=== PATIENT | male | born 1960 | race African-American/Black ===

== ENCOUNTER 2021-07-17 00:21 | Inpatient (IN) | payer MEDICARE, MEDICAID ==
[~2021-07-17] VITALS: Ht 188 cm; Wt 97.5 kg
[2021-07-17] VITALS (50 sets, daily range): BP systolic 94–121; BP diastolic 57–82
[2021-07-17] MEDS ORDERED: VANCOMYCIN 1GM/250ML 250 ML IV ONE (01:45)
[2021-07-17] MEDS ORDERED: SODIUM CHLORIDE 0.9% 3,000 ML IV ONE (01:45)
[2021-07-17] MEDS ORDERED: PIPERACILLIN-TAZOB 3.375GM 100 ML IV ONE (01:45)
[2021-07-17] MEDS ORDERED: METOPROLOL TARTRATE 1MG/1ML-5ML VIAL IV ONE (01:45)
[2021-07-17 02:08] LABS: Basophils # (auto) 0 10 ^3/uL (0-0.2); Basophils % (auto) 0.4 % (0.0-2.0); Eosinophils # (auto) 0 10 ^3/uL (0-0.8); Eosinophils % (auto) 0.3 % (0.0-7.0); Hematocrit 39.2 % (41.0-53.0); Hemoglobin 12.7 g/dL (13.5-17.5); Lymphocytes # (auto) 0.7 10 ^3/uL (0.4-5.4); Lymphocytes % (auto) 11.3 % (10.0-50.0); Mean Corpuscular Hemoglobin 29.6 pg (28.0-32.0); Mean Corpuscular Hgb Conc. 32.5 g/dL (32.0-36.0); Monocytes # (auto) 0.6 10 ^3/uL (0-1.3); Monocytes % (auto) 9.6 % (0.0-12.0); Neutrophils # (auto) 5.2 10 ^3/uL (1.6-8.6); Neutrophils % (auto) 78.4 % (37.0-80.0); Nucleated Red Blood Cells % 0.1 %; Red Blood Cells 4.31 10^6/uL (4.5-5.90); Red Cell Distribution Width 17.5 % (11.8-14.3); White Blood Cell 6.6 10^3/uL (4.4-10.8)
[2021-07-17 02:17] LABS: INR 1.37 (0.9-1.15); Partial Thromboplastin Time 32.7 sec (23.6-33.0)
[2021-07-17 02:18] LABS: Albumin 1.3 g/dL (3.4-5.0); BUN/Creatinine Ratio 18.3; Calcium 7.5 mg/dL (8.5-10.1); Potassium 4.6 mmol/L (3.5-5.1)
[2021-07-17 02:21] LABS: Bilirubin, Total 0.8 mg/dL (0.2-1.0); Total Protein 5.3 g/dL (6.4-8.2)
[2021-07-17 02:22] LABS: Lactic Acid w/Reflex 2.4 mmol/L (0.4-2.0)
[2021-07-17] MEDS: METOPROLOL TARTRATE 1MG/1ML-5ML VIAL IV SCH ×4 (02:30→04:42)
[2021-07-17] MEDS ORDERED: NOREPINEPHRINE 8 MG/250ML KIT 250 ML IV ONE (03:17)
[2021-07-17] MEDS: NOREPINEPHRINE 8 MG/250ML KIT 250 ML IV SCH (03:32)
[2021-07-17] MEDS ORDERED: MORPHINE SULFATE INJ 2 MG/ml SYRG IV PRN ×3 (09:30→11:15)
[2021-07-17] MEDS ORDERED: DEXTROSE (50%) 50ML SYRG IV ONE (09:30)
[2021-07-17] MEDS ORDERED: NITROGLYCERIN 0.4 MG SL TAB SL PRN ×2 (09:30→11:15)
[2021-07-17] MEDS: D5W/SOD CHLO 0.9% 1,000 ML IV SCH (09:42)
[2021-07-17] MEDS ORDERED: LIDOCAINE 2% JELLY 11ml (GLYDO) ONE (10:42)
[2021-07-17] MEDS ORDERED: DOCUSATE SOD 100 MG CAP PO PRN (11:15)
[2021-07-17] MEDS ORDERED: HYDROcodone-ACET 5/325MG TAB PO PRN (11:15)
[2021-07-17] MEDS ORDERED: hydrALAZINE HCL 20 MG/ML VL IV PRN (11:15)
[2021-07-17] MEDS ORDERED: LORazepam 0.5 MG TAB PO PRN (11:15)
[2021-07-17] MEDS ORDERED: ONDANSETRON HCL 4 MG/2 ML VIAL IV PRN (11:15)
[2021-07-17] MEDS ORDERED: VANCOMYCIN PER PHARMACY 0 MG IV SCH (11:15)
[2021-07-17 11:58] LABS: Magnesium 1.5 mg/dL (1.6-2.6); Phosphorus 2.7 mg/dL (2.5-4.90)
[2021-07-17] MEDS ORDERED: PIPERACILLIN-TAZOB 3.375GM 100 ML IV SCH (12:00)
[2021-07-17] MEDS ORDERED: LIDOCAINE 1% (LOCAL ANESTH.) PF 5ml SDV ID ONE (17:15)
[2021-07-17] MEDS: FUROSEMIDE 20 MG/2 ML VIAL IV SCH (18:25)
[2021-07-17 18:57] LABS: INR 1.38 (0.9-1.15); Partial Thromboplastin Time 36.2 sec (23.6-33.0)
[2021-07-17 22:16] LABS: Urine Bacteria FEW /hpf (None Seen); Urine Blood 2+ /uL (Negative); Urine Hyaline Cast FEW /lpf (0 - 2); Urine Specific Gravity 1.005 (1.001-1.035); Urine WBC 7 /hpf (0 - 3)
[2021-07-17] MEDS: CEFEPIME 2 GM in SODIUM CHL 0.9% 50 ML IV SCH (22:16)
[2021-07-17] MEDS: SODIUM CHLOR 0.9% PF (SALINE LOCK) 10ML VIAL/SYR IV SCH (22:17)
[2021-07-18] VITALS (92 sets, daily range): BP systolic 61–167; BP diastolic 37–127
[2021-07-18] MEDS: NOREPINEPHRINE 8 MG/250ML KIT 250 ML IV SCH ×3 (00:29→19:45)
[2021-07-18] MEDS ORDERED: VANCOMYCIN PER PHARMACY 0 MG IV SCH (00:45)
[2021-07-18] MEDS: FUROSEMIDE 20 MG/2 ML VIAL IV SCH ×2 (06:13→18:51)
[2021-07-18 07:55] LABS: Basophils # (auto) 0 10 ^3/uL (0-0.2); Eosinophils # (auto) 0 10 ^3/uL (0-0.8); Eosinophils % (auto) 0.5 % (0.0-7.0); Lymphocytes # (auto) 0.8 10 ^3/uL (0.4-5.4); Mean Corpuscular Volume 96.2 fL (80.0-100.0); Neutrophils % (auto) 79.6 % (37.0-80.0)
[2021-07-18 07:57] LABS: Basophils % (auto) 0.2 % (0.0-2.0); Hematocrit 37.2 % (41.0-53.0); Hemoglobin 11.8 g/dL (13.5-17.5); Lymphocytes % (auto) 10.1 % (10.0-50.0); Mean Corpuscular Hemoglobin 30.6 pg (28.0-32.0); Mean Corpuscular Hgb Conc. 31.8 g/dL (32.0-36.0); Monocytes # (auto) 0.8 10 ^3/uL (0-1.3); Monocytes % (auto) 9.6 % (0.0-12.0); Neutrophils # (auto) 6.3 10 ^3/uL (1.6-8.6); Nucleated Red Blood Cells % 0.1 %; Red Blood Cells 3.87 10^6/uL (4.5-5.90); Red Cell Distribution Width 17.9 % (11.8-14.3); White Blood Cell 7.9 10^3/uL (4.4-10.8)
[2021-07-18 08:10] LABS: INR 1.49 (0.9-1.15); Partial Thromboplastin Time 40.1 sec (23.6-33.0)
[2021-07-18 08:28] LABS: Potassium 3.4 mmol/L (3.5-5.1)
[2021-07-18 08:41] LABS: BUN/Creatinine Ratio 17.5; Bilirubin, Total 0.6 mg/dL (0.2-1.0); CRP High Sensitivity 14.5 mg/dL (< 0.3); Calcium 6.3 mg/dL (8.5-10.1); Magnesium 1.6 mg/dL (1.6-2.6); Phosphorus 3.2 mg/dL (2.5-4.90); Total Protein 4.7 g/dL (6.4-8.2); Uric Acid 6.4 mg/dL (3.5-7.2)
[2021-07-18] MEDS: D5W/SOD CHLO 0.9% 1,000 ML IV SCH (09:30)
[2021-07-18] MEDS: SODIUM CHLOR 0.9% PF (SALINE LOCK) 10ML VIAL/SYR IV SCH ×2 (09:42→22:00)
[2021-07-18] MEDS: CEFEPIME 2 GM in SODIUM CHL 0.9% 50 ML IV SCH ×2 (09:42→22:00)
[2021-07-18] MEDS: FAMOTIDINE (10MG/ML) 2ML VL IV SCH (09:42)
[2021-07-18] MEDS: ENOXAPARIN SOD 40 MG/0.4 ML SYRINGE SC SCH (09:42)
[2021-07-18] MEDS ORDERED: MAGNESIUM SULFATE 1GM/100ML 100 ML IV ONE (09:45)
[2021-07-18] MEDS: VANCOMYCIN 1GM/250ML 250 ML IV SCH ×2 (10:03→22:11)
[2021-07-18] MEDS: POTASSIUM CHL 20MEQ/100ML 100 ML IV SCH ×2 (12:07→15:00)
[2021-07-18] MEDS: POTASSIUM CHLORIDE 40 MEQ in D5W 5% 1,000 ML IV SCH (12:37)
[2021-07-19] VITALS (88 sets, daily range): BP systolic 82–114; BP diastolic 51–78
[2021-07-19] MEDS: POTASSIUM CHLORIDE 40 MEQ in D5W 5% 1,000 ML IV SCH ×2
[2021-07-19] MEDS: NOREPINEPHRINE 8 MG/250ML KIT 250 ML IV SCH ×2 (03:16→10:24)
[2021-07-19 04:29] LABS: Basophils # (auto) 0 10 ^3/uL (0-0.2); Eosinophils # (auto) 0.2 10 ^3/uL (0-0.8); Mean Corpuscular Volume 93.8 fL (80.0-100.0); Monocytes # (auto) 0.9 10 ^3/uL (0-1.3); Red Cell Distribution Width 17.6 % (11.8-14.3)
[2021-07-19 04:31] LABS: Basophils % (auto) 0.3 % (0.0-2.0); Eosinophils % (auto) 2.3 % (0.0-7.0); Hematocrit 36.8 % (41.0-53.0); Hemoglobin 11.6 g/dL (13.5-17.5); Lymphocytes % (auto) 11.4 % (10.0-50.0); Mean Corpuscular Hemoglobin 29.6 pg (28.0-32.0); Mean Corpuscular Hgb Conc. 31.5 g/dL (32.0-36.0); Monocytes % (auto) 10.8 % (0.0-12.0); Neutrophils # (auto) 6.4 10 ^3/uL (1.6-8.6); Neutrophils % (auto) 75.2 % (37.0-80.0); Red Blood Cells 3.92 10^6/uL (4.5-5.90); White Blood Cell 8.5 10^3/uL (4.4-10.8)
[2021-07-19 04:46] LABS: Calcium 6.8 mg/dL (8.5-10.1); Magnesium 1.8 mg/dL (1.6-2.6); Potassium 4.5 mmol/L (3.5-5.1)
[2021-07-19 04:48] LABS: BUN/Creatinine Ratio 17.6
[2021-07-19] MEDS: FUROSEMIDE 20 MG/2 ML VIAL IV SCH ×2 (05:49→23:09)
[2021-07-19] MEDS: FAMOTIDINE (10MG/ML) 2ML VL IV SCH (09:48)
[2021-07-19] MEDS: VANCOMYCIN 1GM/250ML 250 ML IV SCH (09:48)
[2021-07-19] MEDS: SODIUM CHLOR 0.9% PF (SALINE LOCK) 10ML VIAL/SYR IV SCH ×2 (10:23→22:33)
[2021-07-19] MEDS ORDERED: SENNA 8.6 MG TAB PO ONE (11:30)
[2021-07-19] MEDS: CEFEPIME 2 GM in SODIUM CHL 0.9% 50 ML IV SCH ×2 (12:07→22:28)
[2021-07-19] MEDS: ENOXAPARIN SOD 40 MG/0.4 ML SYRINGE SC SCH (12:08)
[2021-07-19] MEDS ORDERED: phytonadione 10 MG in SODIUM CHL 0.9% 50 ML IV ONE (18:00)
[2021-07-19] MEDS: ALBUMIN 25% 50 ML IV SCH ×2 (18:18→20:45)
[2021-07-19] MEDS: SENNA 8.6 MG TAB PO SCH (22:28)
[2021-07-20] VITALS (115 sets, daily range): BP systolic 84–110; BP diastolic 51–76
[2021-07-20] MEDS: NOREPINEPHRINE 8 MG/250ML KIT 250 ML IV SCH (00:02)
[2021-07-20] MEDS: ALBUMIN 25% 50 ML IV SCH (03:53)
[2021-07-20] MEDS: FUROSEMIDE 20 MG/2 ML VIAL IV SCH ×2 (05:55→18:51)
[2021-07-20] MEDS ORDERED: PHYTONADIONE (VIT K)10 MG/ML 1ML VIAL SUBCUT ONE (07:30)
[2021-07-20 08:40] LABS: Eosinophils # (auto) 0.3 10 ^3/uL (0-0.8); White Blood Cell 6.2 10^3/uL (4.4-10.8)
[2021-07-20 08:42] LABS: Basophils # (auto) 0.2 10 ^3/uL (0-0.2); Basophils % (auto) 2.4 % (0.0-2.0); Hematocrit 31.9 % (41.0-53.0); Hemoglobin 10.2 g/dL (13.5-17.5); Lymphocytes # (auto) 0.6 10 ^3/uL (0.4-5.4); Mean Corpuscular Hemoglobin 29.8 pg (28.0-32.0); Mean Corpuscular Hgb Conc. 32.1 g/dL (32.0-36.0); Monocytes # (auto) 0.5 10 ^3/uL (0-1.3); Monocytes % (auto) 8.1 % (0.0-12.0); Neutrophils # (auto) 4.7 10 ^3/uL (1.6-8.6); Neutrophils % (auto) 75.5 % (37.0-80.0); Nucleated Red Blood Cells % 0.1 %; Red Blood Cells 3.43 10^6/uL (4.5-5.90); Red Cell Distribution Width 17.1 % (11.8-14.3)
[2021-07-20 08:52] LABS: Albumin 1.8 g/dL (3.4-5.0); Calcium 7.3 mg/dL (8.5-10.1); Magnesium 1.8 mg/dL (1.6-2.6); Potassium 4.1 mmol/L (3.5-5.1)
[2021-07-20 08:54] LABS: INR 1.25 (0.9-1.15); Partial Thromboplastin Time 32.2 sec (23.6-33.0)
[2021-07-20 08:55] LABS: BUN/Creatinine Ratio 17.4; Bilirubin, Total 0.8 mg/dL (0.2-1.0); Total Protein 5.8 g/dL (6.4-8.2)
[2021-07-20] MEDS: SODIUM CHLOR 0.9% PF (SALINE LOCK) 10ML VIAL/SYR IV SCH ×2 (10:28→22:15)
[2021-07-20] MEDS: FAMOTIDINE (10MG/ML) 2ML VL IV SCH (10:28)
[2021-07-20] MEDS: CEFEPIME 2 GM in SODIUM CHL 0.9% 50 ML IV SCH ×2 (10:29→22:16)
[2021-07-20 11:52] LABS: Hepatitis A Ab IgM Negative; Hepatitis B Core IgM Negative; Hepatitis C Antibody Negative (Negative)
[2021-07-20] MEDS ORDERED: MAGNESIUM SULFATE 1GM/100ML 100 ML IV ONE (14:15)
[2021-07-20 16:15] LABS: Urine Bacteria NONE SEEN /hpf (None Seen); Urine Blood 2+ /uL (Negative); Urine Mucus FEW (None Seen); Urine WBC 2 /hpf (0 - 3)
[2021-07-20] MEDS ORDERED: VANCOMYCIN PER PHARMACY 0 MG IV SCH (16:15)
[2021-07-20 16:23] LABS: Amphetamine Screen, Urine NEGATIVE (NEGATIVE); Barbiturate Scree,Urine NEGATIVE (NEGATIVE); Benzodiazephine Screen, Urine NEGATIVE (NEGATIVE); Cannabinoid Screen, Urine NEGATIVE (NEGATIVE); Cocaine Screen, Urine NEGATIVE (NEGATIVE); Opiate Scree,Urine NEGATIVE (NEGATIVE); Phencyclidine Screen, Urine NEGATIVE (NEGATIVE)
[2021-07-20] MEDS ORDERED: VANCOMYCIN 1GM/250ML 250 ML IV ONE (16:30)
[2021-07-20] MEDS: metroNIDAZOLE 500 MG TAB PO SCH ×2 (18:51→22:15)
[2021-07-20] MEDS: SENNA 8.6 MG TAB PO SCH (22:00)
[2021-07-21] VITALS (75 sets, daily range): BP systolic 87–133; BP diastolic 53–84
[2021-07-21 00:45] LABS: Basophils # (auto) 0 10 ^3/uL (0-0.2); Basophils % (auto) 0.5 % (0.0-2.0); Eosinophils # (auto) 0.3 10 ^3/uL (0-0.8); Eosinophils % (auto) 2.7 % (0.0-7.0); Hematocrit 30.9 % (41.0-53.0); Hemoglobin 9.9 g/dL (13.5-17.5); Lymphocytes # (auto) 0.5 10 ^3/uL (0.4-5.4); Lymphocytes % (auto) 5.5 % (10.0-50.0); Mean Corpuscular Hemoglobin 29.5 pg (28.0-32.0); Mean Corpuscular Hgb Conc. 32.1 g/dL (32.0-36.0); Mean Corpuscular Volume 91.9 fL (80.0-100.0); Monocytes # (auto) 0.8 10 ^3/uL (0-1.3); Monocytes % (auto) 7.9 % (0.0-12.0); Neutrophils # (auto) 7.9 10 ^3/uL (1.6-8.6); Neutrophils % (auto) 83.4 % (37.0-80.0); Nucleated Red Blood Cells % 0.1 %; Red Blood Cells 3.36 10^6/uL (4.5-5.90); Red Cell Distribution Width 16.6 % (11.8-14.3); White Blood Cell 9.5 10^3/uL (4.4-10.8)
[2021-07-21 00:48] LABS: INR 1.26 (0.9-1.15); Partial Thromboplastin Time 34.1 sec (23.6-33.0)
[2021-07-21 00:51] LABS: BUN/Creatinine Ratio 16.8; Calcium 7.6 mg/dL (8.5-10.1); Magnesium 1.9 mg/dL (1.6-2.6); Potassium 3.9 mmol/L (3.5-5.1)
[2021-07-21] MEDS: VANCOMYCIN 1GM/250ML 250 ML IV SCH ×2 (02:47→16:37)
[2021-07-21] MEDS: NOREPINEPHRINE 8 MG/250ML KIT 250 ML IV SCH ×2 (02:48→18:50)
[2021-07-21] MEDS: metroNIDAZOLE 500 MG TAB PO SCH ×2 (05:45→16:31)
[2021-07-21] MEDS: FUROSEMIDE 20 MG/2 ML VIAL IV SCH ×2 (05:45→17:50)
[2021-07-21] MEDS: SODIUM CHLOR 0.9% PF (SALINE LOCK) 10ML VIAL/SYR IV SCH ×2 (09:32→22:09)
[2021-07-21] MEDS: FAMOTIDINE (10MG/ML) 2ML VL IV SCH (10:00)
[2021-07-21] MEDS: CEFEPIME 2 GM in SODIUM CHL 0.9% 50 ML IV SCH ×2 (10:02→23:22)
[2021-07-21] MEDS ORDERED: BUPIVACAINE 0.25% INJ 50ML VIAL ONE (10:05)
[2021-07-21] MEDS ORDERED: LIDOCAINE 1%-Mpf/Epinephrine 1:200,000 ONE (10:05)
[2021-07-21] MEDS ORDERED: ceFAZolin 1GM/50ML 0 ML IV ONE (10:05)
[2021-07-21] MEDS ORDERED: PHENYLEPHRINE HCL 10 MG/ML VL ONE (10:28)
[2021-07-21] MEDS ORDERED: PROPOFOL 10 MG/ML 20 ML IV ONE (10:28)
[2021-07-21] MEDS ORDERED: HYDROmorphone HCL 2 MG/ML VL/or syr ONE (10:28)
[2021-07-21] MEDS ORDERED: GLYCOPYRROLATE 0.2 MG/ML 1ML VIAL ONE (10:28)
[2021-07-21] MEDS ORDERED: LIDOCAINE 2% (LOCAL ANESTH.) PF 5ml SDV ONE (10:28)
[2021-07-21] MEDS ORDERED: ETOMIDATE (2MG/ML) 20ML VIAL IV ONE (10:28)
[2021-07-21] MEDS ORDERED: MIDAZOLAM HCL 2MG/2ML 2ml VIAL (1mg/ml) ONE (10:28)
[2021-07-21] MEDS ORDERED: fentaNYL CITRATE 100 MCG/2 ML VL ONE ×2 (10:28→11:40)
[2021-07-21] MEDS ORDERED: ePHEDrine SULFATE 50 MG/ML AMP ONE (10:28)
[2021-07-21] MEDS ORDERED: ONDANSETRON HCL 4 MG/2 ML VIAL ONE (10:28)
[2021-07-21] MEDS ORDERED: SUGAMMADEX 200mg/2ml Vial (100MG/ML) IV ONE (12:23)
[2021-07-21] MEDS ORDERED: HYDROmorphone HCL 2 MG/ML VL/or syr IV PRN (13:15)
[2021-07-21] MEDS ORDERED: fentaNYL CITRATE 100 MCG/2 ML VL IV PRN (13:15)
[2021-07-21] MEDS: SENNA 8.6 MG TAB PO SCH (22:00)
[2021-07-21] MEDS: metroNIDAZOLE 500MG/100ML 100 ML IV SCH (22:08)
[2021-07-22] VITALS (92 sets, daily range): BP systolic 75–142; BP diastolic 47–99
[2021-07-22] MEDS: VANCOMYCIN 1GM/250ML 250 ML IV SCH ×3 (02:58→22:42)
[2021-07-22 04:49] LABS: Basophils # (auto) 0 10 ^3/uL (0-0.2); Basophils % (auto) 0.5 % (0.0-2.0); Eosinophils # (auto) 0 10 ^3/uL (0-0.8); Hematocrit 32.4 % (41.0-53.0); Hemoglobin 10.6 g/dL (13.5-17.5); Lymphocytes # (auto) 0.4 10 ^3/uL (0.4-5.4); Lymphocytes % (auto) 4.8 % (10.0-50.0); Mean Corpuscular Hemoglobin 29.9 pg (28.0-32.0); Mean Corpuscular Hgb Conc. 32.7 g/dL (32.0-36.0); Mean Corpuscular Volume 91.2 fL (80.0-100.0); Monocytes # (auto) 0.3 10 ^3/uL (0-1.3); Monocytes % (auto) 3.7 % (0.0-12.0); Neutrophils # (auto) 8.3 10 ^3/uL (1.6-8.6); Red Blood Cells 3.55 10^6/uL (4.5-5.90); Red Cell Distribution Width 16.4 % (11.8-14.3); White Blood Cell 9.1 10^3/uL (4.4-10.8)
[2021-07-22 05:05] LABS: BUN/Creatinine Ratio 19.4; Calcium 7.5 mg/dL (8.5-10.1); Magnesium 1.9 mg/dL (1.6-2.6)
[2021-07-22] MEDS: metroNIDAZOLE 500MG/100ML 100 ML IV SCH ×3 (06:18→22:41)
[2021-07-22] MEDS: FUROSEMIDE 20 MG/2 ML VIAL IV SCH ×2 (06:18→18:27)
[2021-07-22] MEDS: NOREPINEPHRINE 8 MG/250ML KIT 250 ML IV SCH (07:00)
[2021-07-22] MEDS ORDERED: amLODIPine BESYLATE 5 MG TAB PO SCH (10:00)
[2021-07-22] MEDS: FAMOTIDINE (10MG/ML) 2ML VL IV SCH (10:22)
[2021-07-22] MEDS: SODIUM CHLOR 0.9% PF (SALINE LOCK) 10ML VIAL/SYR IV SCH ×2 (10:23→22:41)
[2021-07-22] MEDS: CEFEPIME 2 GM in SODIUM CHL 0.9% 50 ML IV SCH (11:00)
[2021-07-22] MEDS ORDERED: MAGNESIUM OXIDE 400 MG TAB PO ONE (12:30)
[2021-07-22] MEDS ORDERED: ALBUMIN 25% 100 ML IV ONE (12:30)
[2021-07-22] MEDS ORDERED: LEVOTHYROXINE SODIUM 25 MCG TAB PO ONE (13:15)
[2021-07-22] MEDS ORDERED: ALPRAZolam 0.5 MG TAB PO SCH (14:00)
[2021-07-22] MEDS ORDERED: DIGOXIN (250MCG/ML) 2 ML AMPULE IV ONE (14:15)
[2021-07-22] MEDS ORDERED: DIGOXIN (250MCG/ML) 2 ML AMPULE ONE (14:22)
[2021-07-22] MEDS: SENNA 8.6 MG TAB PO SCH (22:00)
[2021-07-23] VITALS (97 sets, daily range): BP systolic 88–150; BP diastolic 53–90
[2021-07-23] MEDS: CEFEPIME 2 GM in SODIUM CHL 0.9% 50 ML IV SCH ×3 (01:52→18:10)
[2021-07-23] MEDS: NOREPINEPHRINE 8 MG/250ML KIT 250 ML IV SCH (03:30)
[2021-07-23] MEDS: metroNIDAZOLE 500MG/100ML 100 ML IV SCH ×3 (05:54→22:16)
[2021-07-23] MEDS: LEVOTHYROXINE SODIUM 25 MCG TAB PO SCH (05:54)
[2021-07-23] MEDS: FUROSEMIDE 20 MG/2 ML VIAL IV SCH ×2 (05:55→17:59)
[2021-07-23] MEDS: VANCOMYCIN 1GM/250ML 250 ML IV SCH (08:07)
[2021-07-23 08:43] LABS: Basophils # (auto) 0 10 ^3/uL (0-0.2); Basophils % (auto) 0.1 % (0.0-2.0); Eosinophils # (auto) 0 10 ^3/uL (0-0.8); Eosinophils % (auto) 0.4 % (0.0-7.0); Hematocrit 33.6 % (41.0-53.0); Hemoglobin 11.1 g/dL (13.5-17.5); Lymphocytes # (auto) 1.1 10 ^3/uL (0.4-5.4); Lymphocytes % (auto) 9.9 % (10.0-50.0); Mean Corpuscular Hemoglobin 29.8 pg (28.0-32.0); Mean Corpuscular Volume 90.3 fL (80.0-100.0); Monocytes # (auto) 0.9 10 ^3/uL (0-1.3); Monocytes % (auto) 8.1 % (0.0-12.0); Neutrophils # (auto) 8.6 10 ^3/uL (1.6-8.6); Neutrophils % (auto) 81.5 % (37.0-80.0); Red Blood Cells 3.72 10^6/uL (4.5-5.90); Red Cell Distribution Width 16.6 % (11.8-14.3); White Blood Cell 10.6 10^3/uL (4.4-10.8)
[2021-07-23 09:00] LABS: Magnesium 1.9 mg/dL (1.6-2.6); Potassium 3.5 mmol/L (3.5-5.1)
[2021-07-23 09:02] LABS: BUN/Creatinine Ratio 21.5; Phosphorus 1.5 mg/dL (2.5-4.90)
[2021-07-23] MEDS: SODIUM CHLOR 0.9% PF (SALINE LOCK) 10ML VIAL/SYR IV SCH ×2 (09:37→22:37)
[2021-07-23] MEDS: FAMOTIDINE (10MG/ML) 2ML VL IV SCH (09:37)
[2021-07-23] MEDS ORDERED: POTASSIUM PHOSPHATE 26.4 MEQ in SODIUM CHL 0.9% 100 ML IV ONE (15:30)
[2021-07-23] MEDS: MAGNESIUM SULFATE 1GM/100ML 100 ML IV SCH ×2 (16:36→17:58)
[2021-07-23] MEDS: HEPARIN SODIUM (PORCINE) 5000 UNITS/ML 1ML VIAL SC SCH (22:00)
[2021-07-23] MEDS: SENNA 8.6 MG TAB PO SCH (22:16)
[2021-07-24] VITALS (97 sets, daily range): BP systolic 85–133; BP diastolic 43–80
[2021-07-24] MEDS: CEFEPIME 2 GM in SODIUM CHL 0.9% 50 ML IV SCH ×3 (02:43→17:47)
[2021-07-24] MEDS: NOREPINEPHRINE 8 MG/250ML KIT 250 ML IV SCH ×2 (03:30→21:25)
[2021-07-24 04:44] LABS: Basophils # (auto) 0.1 10 ^3/uL (0-0.2); Basophils % (auto) 1.1 % (0.0-2.0); Eosinophils # (auto) 0.1 10 ^3/uL (0-0.8); Eosinophils % (auto) 2.9 % (0.0-7.0); Hematocrit 30.8 % (41.0-53.0); Hemoglobin 9.9 g/dL (13.5-17.5); Lymphocytes # (auto) 0.7 10 ^3/uL (0.4-5.4); Lymphocytes % (auto) 12.8 % (10.0-50.0); Mean Corpuscular Hemoglobin 29.2 pg (28.0-32.0); Mean Corpuscular Hgb Conc. 32.2 g/dL (32.0-36.0); Mean Corpuscular Volume 90.6 fL (80.0-100.0); Monocytes # (auto) 0.6 10 ^3/uL (0-1.3); Monocytes % (auto) 12.1 % (0.0-12.0); Neutrophils # (auto) 3.6 10 ^3/uL (1.6-8.6); Neutrophils % (auto) 71.1 % (37.0-80.0); Red Cell Distribution Width 16.5 % (11.8-14.3); White Blood Cell 5.1 10^3/uL (4.4-10.8)
[2021-07-24 05:05] LABS: BUN/Creatinine Ratio 20.2; Calcium 7.7 mg/dL (8.5-10.1); Magnesium 1.8 mg/dL (1.6-2.6); Phosphorus 1.8 mg/dL (2.5-4.90); Potassium 3.4 mmol/L (3.5-5.1)
[2021-07-24] MEDS: metroNIDAZOLE 500MG/100ML 100 ML IV SCH ×3 (06:41→21:13)
[2021-07-24] MEDS: FUROSEMIDE 20 MG/2 ML VIAL IV SCH ×2 (06:45→17:46)
[2021-07-24] MEDS: LEVOTHYROXINE SODIUM 25 MCG TAB PO SCH (06:46)
[2021-07-24] MEDS: FAMOTIDINE (10MG/ML) 2ML VL IV SCH (09:41)
[2021-07-24] MEDS: HEPARIN SODIUM (PORCINE) 5000 UNITS/ML 1ML VIAL SC SCH ×2 (09:42→21:15)
[2021-07-24] MEDS: SODIUM CHLOR 0.9% PF (SALINE LOCK) 10ML VIAL/SYR IV SCH ×2 (09:42→22:15)
[2021-07-24] MEDS ORDERED: NEUTRA-PHOS TABLET PO ONE (12:45)
[2021-07-24] MEDS ORDERED: POTASSIUM PHOSPHATE 26.4 MEQ in SODIUM CHL 0.9% 100 ML IV ONE (12:45)
[2021-07-24] MEDS: Pro-Stat SF 30ml Vanilla PO SCH (17:47)
[2021-07-24] MEDS: SENNA 8.6 MG TAB PO SCH (21:15)
[2021-07-25] VITALS (83 sets, daily range): BP systolic 92–142; BP diastolic 45–121
[2021-07-25] MEDS: CEFEPIME 2 GM in SODIUM CHL 0.9% 50 ML IV SCH ×3 (02:20→17:43)
[2021-07-25 04:36] LABS: Albumin 1.6 g/dL (3.4-5.0); BUN/Creatinine Ratio 19.2; Calcium 7.5 mg/dL (8.5-10.1); Magnesium 1.7 mg/dL (1.6-2.6); Potassium 3.5 mmol/L (3.5-5.1)
[2021-07-25 04:39] LABS: Bilirubin, Total 0.7 mg/dL (0.2-1.0); Phosphorus 1.9 mg/dL (2.5-4.90); Total Protein 5.5 g/dL (6.4-8.2)
[2021-07-25] MEDS: LEVOTHYROXINE SODIUM 25 MCG TAB PO SCH (06:55)
[2021-07-25] MEDS: FUROSEMIDE 20 MG/2 ML VIAL IV SCH ×2 (06:55→17:43)
[2021-07-25] MEDS: metroNIDAZOLE 500MG/100ML 100 ML IV SCH ×3 (06:56→22:09)
[2021-07-25] MEDS ORDERED: DIGOXIN (250MCG/ML) 2 ML AMPULE IV ONE (09:00)
[2021-07-25] MEDS ORDERED: POTASSIUM PHOSPHATE 44 MEQ in D5W 5% 250 ML IV ONE (09:15)
[2021-07-25] MEDS: Pro-Stat SF 30ml Vanilla PO SCH ×2 (09:27→17:43)
[2021-07-25] MEDS: FAMOTIDINE (10MG/ML) 2ML VL IV SCH (09:33)
[2021-07-25] MEDS: METOPROLOL TARTRATE 50 MG TAB PO SCH ×2 (09:33→22:12)
[2021-07-25] MEDS: SODIUM CHLOR 0.9% PF (SALINE LOCK) 10ML VIAL/SYR IV SCH ×2 (09:34→22:00)
[2021-07-25] MEDS: HEPARIN SODIUM (PORCINE) 5000 UNITS/ML 1ML VIAL SC SCH ×2 (09:34→22:00)
[2021-07-25] MEDS ORDERED: VANCOMYCIN 500 MG in D5W 5% 100 ML IV SCH (15:00)
[2021-07-25] MEDS: SENNA 8.6 MG TAB PO SCH (22:10)
[2021-07-26] VITALS (70 sets, daily range): BP systolic 40–112; BP diastolic 23–81
[2021-07-26] MEDS: CEFEPIME 2 GM in SODIUM CHL 0.9% 50 ML IV SCH ×3 (02:01→18:43)
[2021-07-26] MEDS: NOREPINEPHRINE 8 MG/250ML KIT 250 ML IV SCH ×2 (03:30→22:14)
[2021-07-26 04:08] LABS: Basophils # (auto) 0.1 10 ^3/uL (0-0.2); Basophils % (auto) 0.7 % (0.0-2.0); Eosinophils # (auto) 0.3 10 ^3/uL (0-0.8); Eosinophils % (auto) 3.6 % (0.0-7.0); Hematocrit 30.4 % (41.0-53.0); Hemoglobin 9.8 g/dL (13.5-17.5); Lymphocytes # (auto) 1.1 10 ^3/uL (0.4-5.4); Lymphocytes % (auto) 12.7 % (10.0-50.0); Mean Corpuscular Hemoglobin 29.4 pg (28.0-32.0); Mean Corpuscular Hgb Conc. 32.3 g/dL (32.0-36.0); Monocytes # (auto) 1.2 10 ^3/uL (0-1.3); Monocytes % (auto) 13.3 % (0.0-12.0); Neutrophils % (auto) 69.7 % (37.0-80.0); Red Blood Cells 3.34 10^6/uL (4.5-5.90); Red Cell Distribution Width 15.9 % (11.8-14.3); White Blood Cell 8.6 10^3/uL (4.4-10.8)
[2021-07-26 04:41] LABS: BUN/Creatinine Ratio 15.2; Calcium 7.8 mg/dL (8.5-10.1); Potassium 3.7 mmol/L (3.5-5.1)
[2021-07-26] MEDS: metroNIDAZOLE 500MG/100ML 100 ML IV SCH ×3 (06:00→22:01)
[2021-07-26] MEDS: FUROSEMIDE 20 MG/2 ML VIAL IV SCH ×2 (06:00→18:43)
[2021-07-26] MEDS ORDERED: MAGNESIUM SULFATE 1GM/100ML 100 ML IV ONE (06:45)
[2021-07-26] MEDS: Pro-Stat SF 30ml Vanilla PO SCH ×2 (08:00→18:43)
[2021-07-26] MEDS: LEVOTHYROXINE SODIUM 25 MCG TAB PO SCH (09:33)
[2021-07-26] MEDS: METOPROLOL TARTRATE 50 MG TAB PO SCH ×2 (10:00→22:00)
[2021-07-26] MEDS: HEPARIN SODIUM (PORCINE) 5000 UNITS/ML 1ML VIAL SC SCH ×2 (10:00→22:02)
[2021-07-26] MEDS: POTASSIUM CHL 20MEQ/100ML 100 ML IV SCH ×3 (10:22→14:20)
[2021-07-26] MEDS: MAGNESIUM SULFATE 1GM/100ML 100 ML IV SCH ×4 (10:28→14:17)
[2021-07-26] MEDS: SODIUM CHLOR 0.9% PF (SALINE LOCK) 10ML VIAL/SYR IV SCH ×2 (11:24→22:00)
[2021-07-26] MEDS: FAMOTIDINE (10MG/ML) 2ML VL IV SCH (11:24)
[2021-07-26] MEDS ORDERED: ZOLPIDEM TARTRATE 5 MG TAB PO PRN (11:45)
[2021-07-26] MEDS: Juven Fruit Punch Powder PACKET 28.8gm PO SCH (19:25)
[2021-07-26 19:37] LABS: Potassium 3.3 mmol/L (3.5-5.1)
[2021-07-26] MEDS: SENNA 8.6 MG TAB PO SCH (22:01)
[2021-07-27] VITALS (87 sets, daily range): BP systolic 84–118; BP diastolic 49–80
[2021-07-27] MEDS: CEFEPIME 2 GM in SODIUM CHL 0.9% 50 ML IV SCH ×3 (02:04→17:57)
[2021-07-27] MEDS: FUROSEMIDE 20 MG/2 ML VIAL IV SCH ×2 (06:00→17:58)
[2021-07-27] MEDS: metroNIDAZOLE 500MG/100ML 100 ML IV SCH ×3 (06:29→22:08)
[2021-07-27] MEDS ORDERED: POTASSIUM CHL 20 Meq TABLET PO ONE (06:30)
[2021-07-27] MEDS: LEVOTHYROXINE SODIUM 25 MCG TAB PO SCH (06:31)
[2021-07-27 07:15] LABS: Basophils # (auto) 0.2 10 ^3/uL (0-0.2); Eosinophils # (auto) 0.5 10 ^3/uL (0-0.8); Eosinophils % (auto) 6.2 % (0.0-7.0); Hematocrit 28.7 % (41.0-53.0); Hemoglobin 9.3 g/dL (13.5-17.5); Lymphocytes # (auto) 0.8 10 ^3/uL (0.4-5.4); Lymphocytes % (auto) 10.2 % (10.0-50.0); Mean Corpuscular Hemoglobin 29.8 pg (28.0-32.0); Mean Corpuscular Hgb Conc. 32.5 g/dL (32.0-36.0); Mean Corpuscular Volume 91.7 fL (80.0-100.0); Monocytes # (auto) 0.9 10 ^3/uL (0-1.3); Monocytes % (auto) 11.5 % (0.0-12.0); Neutrophils # (auto) 5.6 10 ^3/uL (1.6-8.6); Neutrophils % (auto) 70.1 % (37.0-80.0); Nucleated Red Blood Cells % 0.1 %; Red Blood Cells 3.13 10^6/uL (4.5-5.90); Red Cell Distribution Width 16.2 % (11.8-14.3)
[2021-07-27 07:46] LABS: Calcium 7.4 mg/dL (8.5-10.1); Potassium 3.9 mmol/L (3.5-5.1)
[2021-07-27] MEDS: Juven Fruit Punch Powder PACKET 28.8gm PO SCH ×2 (08:17→19:56)
[2021-07-27] MEDS: Pro-Stat SF 30ml Vanilla PO SCH ×2 (08:17→19:56)
[2021-07-27] MEDS: SODIUM CHLOR 0.9% PF (SALINE LOCK) 10ML VIAL/SYR IV SCH ×2 (10:00→22:09)
[2021-07-27] MEDS: METOPROLOL TARTRATE 50 MG TAB PO SCH ×2 (10:00→22:09)
[2021-07-27] MEDS: FAMOTIDINE (10MG/ML) 2ML VL IV SCH (10:12)
[2021-07-27] MEDS: HEPARIN SODIUM (PORCINE) 5000 UNITS/ML 1ML VIAL SC SCH ×2 (10:13→22:10)
[2021-07-27] MEDS: ALBUMIN 25% 50 ML IV SCH ×2 (11:39→17:59)
[2021-07-27] MEDS: SENNA 8.6 MG TAB PO SCH (22:09)
[2021-07-28] VITALS (79 sets, daily range): BP systolic 78–122; BP diastolic 43–79
[2021-07-28] MEDS: CEFEPIME 2 GM in SODIUM CHL 0.9% 50 ML IV SCH ×2 (02:01→09:53)
[2021-07-28] MEDS: ALBUMIN 25% 50 ML IV SCH (04:09)
[2021-07-28] MEDS: NOREPINEPHRINE 8 MG/250ML KIT 250 ML IV SCH (04:10)
[2021-07-28 04:32] LABS: Basophils # (auto) 0.1 10 ^3/uL (0-0.2); Basophils % (auto) 0.7 % (0.0-2.0); Eosinophils # (auto) 0.8 10 ^3/uL (0-0.8); Eosinophils % (auto) 7.4 % (0.0-7.0); Hematocrit 28.8 % (41.0-53.0); Hemoglobin 9.2 g/dL (13.5-17.5); Lymphocytes % (auto) 9.8 % (10.0-50.0); Mean Corpuscular Hemoglobin 29.4 pg (28.0-32.0); Mean Corpuscular Hgb Conc. 31.8 g/dL (32.0-36.0); Mean Corpuscular Volume 92.5 fL (80.0-100.0); Monocytes # (auto) 1.3 10 ^3/uL (0-1.3); Monocytes % (auto) 13.1 % (0.0-12.0); Red Blood Cells 3.11 10^6/uL (4.5-5.90); Red Cell Distribution Width 16.6 % (11.8-14.3); White Blood Cell 10.1 10^3/uL (4.4-10.8)
[2021-07-28 04:48] LABS: BUN/Creatinine Ratio 22.6; Calcium 7.6 mg/dL (8.5-10.1); Potassium 4.3 mmol/L (3.5-5.1)
[2021-07-28] MEDS: metroNIDAZOLE 500MG/100ML 100 ML IV SCH ×3 (06:28→23:06)
[2021-07-28] MEDS: LEVOTHYROXINE SODIUM 25 MCG TAB PO SCH (06:29)
[2021-07-28] MEDS: FUROSEMIDE 20 MG/2 ML VIAL IV SCH ×2 (06:29→17:37)
[2021-07-28] MEDS: Juven Fruit Punch Powder PACKET 28.8gm PO SCH ×2 (08:13→18:13)
[2021-07-28] MEDS: Pro-Stat SF 30ml Vanilla PO SCH ×2 (08:13→18:13)
[2021-07-28] MEDS: FAMOTIDINE (10MG/ML) 2ML VL IV SCH (09:53)
[2021-07-28] MEDS: HEPARIN SODIUM (PORCINE) 5000 UNITS/ML 1ML VIAL SC SCH ×2 (09:54→23:08)
[2021-07-28] MEDS: SODIUM CHLOR 0.9% PF (SALINE LOCK) 10ML VIAL/SYR IV SCH ×2 (09:59→23:06)
[2021-07-28] MEDS ORDERED: VANCOMYCIN PER PHARMACY 0 MG IV SCH (10:30)
[2021-07-28] MEDS: VANCOMYCIN 1GM/250ML 250 ML IV SCH ×2 (11:25→21:02)
[2021-07-28] MEDS ORDERED: METOPROLOL TARTRATE 1MG/1ML-5ML VIAL IV PRN (12:00)
[2021-07-28] MEDS: SENNA 8.6 MG TAB PO SCH (22:00)
[2021-07-29] VITALS (86 sets, daily range): BP systolic 76–122; BP diastolic 45–83
[2021-07-29] MEDS: NOREPINEPHRINE 8 MG/250ML KIT 250 ML IV SCH (03:30)
[2021-07-29 03:52] LABS: Basophils # (auto) 0 10 ^3/uL (0-0.2); Basophils % (auto) 0.5 % (0.0-2.0); Eosinophils # (auto) 0.4 10 ^3/uL (0-0.8); Eosinophils % (auto) 5.3 % (0.0-7.0); Hematocrit 28.4 % (41.0-53.0); Hemoglobin 9.2 g/dL (13.5-17.5); Lymphocytes # (auto) 0.7 10 ^3/uL (0.4-5.4); Lymphocytes % (auto) 9.6 % (10.0-50.0); Mean Corpuscular Hemoglobin 29.8 pg (28.0-32.0); Mean Corpuscular Hgb Conc. 32.3 g/dL (32.0-36.0); Mean Corpuscular Volume 92.3 fL (80.0-100.0); Monocytes % (auto) 13.1 % (0.0-12.0); Neutrophils # (auto) 5.6 10 ^3/uL (1.6-8.6); Neutrophils % (auto) 71.5 % (37.0-80.0); Red Blood Cells 3.08 10^6/uL (4.5-5.90); Red Cell Distribution Width 16.6 % (11.8-14.3); White Blood Cell 7.8 10^3/uL (4.4-10.8)
[2021-07-29 04:02] LABS: Potassium 3.8 mmol/L (3.5-5.1)
[2021-07-29 04:08] LABS: Albumin 1.8 g/dL (3.4-5.0); BUN/Creatinine Ratio 23.1; Calcium 7.5 mg/dL (8.5-10.1)
[2021-07-29] MEDS: metroNIDAZOLE 500MG/100ML 100 ML IV SCH ×3 (06:23→22:05)
[2021-07-29] MEDS: FUROSEMIDE 20 MG/2 ML VIAL IV SCH ×2 (06:31→18:56)
[2021-07-29] MEDS: LEVOTHYROXINE SODIUM 25 MCG TAB PO SCH (06:31)
[2021-07-29] MEDS: VANCOMYCIN 1GM/250ML 250 ML IV SCH (06:31)
[2021-07-29] MEDS: Pro-Stat SF 30ml Vanilla PO SCH ×2 (08:00→18:56)
[2021-07-29] MEDS: Juven Fruit Punch Powder PACKET 28.8gm PO SCH ×2 (09:22→18:56)
[2021-07-29] MEDS: FAMOTIDINE (10MG/ML) 2ML VL IV SCH (09:43)
[2021-07-29] MEDS: SODIUM CHLOR 0.9% PF (SALINE LOCK) 10ML VIAL/SYR IV SCH ×2 (09:43→22:05)
[2021-07-29] MEDS: HEPARIN SODIUM (PORCINE) 5000 UNITS/ML 1ML VIAL SC SCH ×2 (09:48→22:07)
[2021-07-29] MEDS: MIDODRINE HCL 10 MG TAB PO SCH ×2 (13:47→18:56)
[2021-07-29] MEDS ORDERED: MIDODRINE HCL 10 MG TAB PO SCH (22:00)
[2021-07-29] MEDS: SENNA 8.6 MG TAB PO SCH (22:00)
[2021-07-30] VITALS (72 sets, daily range): BP systolic 51–116; BP diastolic 25–77
[2021-07-30] MEDS: NOREPINEPHRINE 8 MG/250ML KIT 250 ML IV SCH ×2 (03:30→11:50)
[2021-07-30] MEDS: metroNIDAZOLE 500MG/100ML 100 ML IV SCH (06:19)
[2021-07-30] MEDS: FUROSEMIDE 20 MG/2 ML VIAL IV SCH (06:19)
[2021-07-30] MEDS: MIDODRINE HCL 10 MG TAB PO SCH ×3 (06:20→17:53)
[2021-07-30] MEDS: LEVOTHYROXINE SODIUM 25 MCG TAB PO SCH (06:22)
[2021-07-30 07:41] LABS: Basophils # (auto) 0.1 10 ^3/uL (0-0.2); Basophils % (auto) 0.9 % (0.0-2.0); Eosinophils # (auto) 0.5 10 ^3/uL (0-0.8); Eosinophils % (auto) 5.2 % (0.0-7.0); Hematocrit 28.6 % (41.0-53.0); Hemoglobin 9.1 g/dL (13.5-17.5); Mean Corpuscular Hemoglobin 29.2 pg (28.0-32.0); Mean Corpuscular Volume 91.2 fL (80.0-100.0); Monocytes # (auto) 1.4 10 ^3/uL (0-1.3); Monocytes % (auto) 16.1 % (0.0-12.0); Neutrophils # (auto) 5.7 10 ^3/uL (1.6-8.6); Neutrophils % (auto) 65.8 % (37.0-80.0); Nucleated Red Blood Cells % 0.1 %; Red Blood Cells 3.14 10^6/uL (4.5-5.90); Red Cell Distribution Width 16.8 % (11.8-14.3); White Blood Cell 8.7 10^3/uL (4.4-10.8)
[2021-07-30 07:43] LABS: BUN/Creatinine Ratio 22.2; Calcium 7.7 mg/dL (8.5-10.1); Potassium 4.1 mmol/L (3.5-5.1)
[2021-07-30] MEDS: FAMOTIDINE (10MG/ML) 2ML VL IV SCH (10:00)
[2021-07-30] MEDS ORDERED: ALBUMIN 25% 100 ML IV ONE (10:45)
[2021-07-30] MEDS: Juven Fruit Punch Powder PACKET 28.8gm PO SCH ×2 (10:54→17:53)
[2021-07-30] MEDS: Pro-Stat SF 30ml Vanilla PO SCH ×2 (10:55→17:53)
[2021-07-30] MEDS: SODIUM CHLOR 0.9% PF (SALINE LOCK) 10ML VIAL/SYR IV SCH ×2 (11:02→22:02)
[2021-07-30] MEDS: HEPARIN SODIUM (PORCINE) 5000 UNITS/ML 1ML VIAL SC SCH ×2 (11:13→22:02)
[2021-07-30] MEDS ORDERED: MAGNESIUM OXIDE 400 MG TAB PO ONE (11:15)
[2021-07-30] MEDS: MAGNESIUM SULFATE 1GM/100ML 100 ML IV SCH ×2 (12:01→14:33)
[2021-07-30] MEDS: metroNIDAZOLE 500 MG TAB PO SCH ×2 (14:33→22:01)
[2021-07-30] MEDS: SENNA 8.6 MG TAB PO SCH (22:00)
[2021-07-30] MEDS: MAGNESIUM OXIDE 400 MG TAB PO SCH (22:02)
[2021-07-30] MEDS ORDERED: DEXTROSE 50% SYRINGE 0 ML IV ONE (23:47)
[2021-07-30] MEDS ORDERED: CALCIUM GLUC 1,000mg/50ml-NS 0 ML IV ONE (23:48)
[2021-07-31] VITALS (84 sets, daily range): BP systolic 90–118; BP diastolic 44–76
[2021-07-31] MEDS: LEVOTHYROXINE SODIUM 25 MCG TAB PO SCH (05:51)
[2021-07-31] MEDS: MIDODRINE HCL 10 MG TAB PO SCH ×2 (05:52→12:47)
[2021-07-31] MEDS: metroNIDAZOLE 500 MG TAB PO SCH ×3 (05:52→21:54)
[2021-07-31 07:09] LABS: BUN/Creatinine Ratio 25.9; Calcium 7.8 mg/dL (8.5-10.1); Magnesium 2.6 mg/dL (1.6-2.6); Potassium 4.1 mmol/L (3.5-5.1)
[2021-07-31 07:56] LABS: Hematocrit 26.7 % (41.0-53.0); Hemoglobin 8.9 g/dL (13.5-17.5); Mean Corpuscular Hemoglobin 30.6 pg (28.0-32.0); Mean Corpuscular Hgb Conc. 33.2 g/dL (32.0-36.0); Mean Corpuscular Volume 92.2 fL (80.0-100.0); Red Cell Distribution Width 16.9 % (11.8-14.3)
[2021-07-31 08:08] LABS: Band Neutrophils % (manual) 0; Basophils % (manual) 0 (0.0-2.0); Blast Cells 0; Metamyelocytes % 0; Myelocytes % 0; Promyelocytes % 0; Reactive Lymphocytes 0
[2021-07-31 08:42] LABS: Eosinophils % (manual) 2 (0-7); Lymphocytes % (manual) 13 (10.0-50.0); Monocytes % (manual) 19 (0-12)
[2021-07-31] MEDS: Pro-Stat SF 30ml Vanilla PO SCH ×2 (10:17→18:27)
[2021-07-31] MEDS: Juven Fruit Punch Powder PACKET 28.8gm PO SCH ×2 (10:17→18:27)
[2021-07-31] MEDS: SODIUM CHLOR 0.9% PF (SALINE LOCK) 10ML VIAL/SYR IV SCH ×2 (10:17→21:54)
[2021-07-31] MEDS: FAMOTIDINE (10MG/ML) 2ML VL IV SCH (10:26)
[2021-07-31] MEDS: MAGNESIUM OXIDE 400 MG TAB PO SCH ×2 (10:26→21:54)
[2021-07-31] MEDS: HEPARIN SODIUM (PORCINE) 5000 UNITS/ML 1ML VIAL SC SCH ×2 (10:27→21:55)
[2021-07-31] MEDS ORDERED: VANCOMYCIN PER PHARMACY 0 MG IV SCH (11:30)
[2021-07-31] MEDS ORDERED: VANCOMYCIN 1GM/250ML 250 ML IV ONE (13:00)
[2021-07-31] MEDS: NOREPINEPHRINE 8 MG/250ML KIT 250 ML IV SCH (20:41)
[2021-07-31] MEDS: SENNA 8.6 MG TAB PO SCH (20:56)
[2021-08-01] VITALS (73 sets, daily range): BP systolic 72–113; BP diastolic 39–75
[2021-08-01] MEDS: metroNIDAZOLE 500 MG TAB PO SCH ×3 (06:00→22:00)
[2021-08-01 06:25] LABS: Potassium 4.5 mmol/L (3.5-5.1)
[2021-08-01 06:26] LABS: Hematocrit 25.7 % (41.0-53.0); Hemoglobin 8.5 g/dL (13.5-17.5); Mean Corpuscular Hemoglobin 30.5 pg (28.0-32.0); Mean Corpuscular Volume 92.3 fL (80.0-100.0); Red Blood Cells 2.78 10^6/uL (4.5-5.90); Red Cell Distribution Width 17.1 % (11.8-14.3); White Blood Cell 6.3 10^3/uL (4.4-10.8)
[2021-08-01 06:41] LABS: BUN/Creatinine Ratio 26.9; Calcium 7.6 mg/dL (8.5-10.1)
[2021-08-01 06:56] LABS: Band Neutrophils % (manual) 0; Basophils % (manual) 0 (0.0-2.0); Blast Cells 0; Metamyelocytes % 0; Promyelocytes % 0; Reactive Lymphocytes 0
[2021-08-01] MEDS: LEVOTHYROXINE SODIUM 25 MCG TAB PO SCH (07:00)
[2021-08-01 07:45] LABS: Eosinophils % (manual) 3 (0-7); Lymphocytes % (manual) 16 (10.0-50.0); Monocytes % (manual) 18 (0-12); Myelocytes % 1
[2021-08-01] MEDS: Juven Fruit Punch Powder PACKET 28.8gm PO SCH ×2 (08:00→18:00)
[2021-08-01] MEDS: Pro-Stat SF 30ml Vanilla PO SCH ×2 (08:00→18:00)
[2021-08-01] MEDS: SODIUM CHLOR 0.9% PF (SALINE LOCK) 10ML VIAL/SYR IV SCH ×2 (14:47→22:00)
[2021-08-01] MEDS: FAMOTIDINE (10MG/ML) 2ML VL IV SCH (14:47)
[2021-08-01] MEDS: MAGNESIUM OXIDE 400 MG TAB PO SCH ×2 (14:48→22:00)
[2021-08-01] MEDS: HEPARIN SODIUM (PORCINE) 5000 UNITS/ML 1ML VIAL SC SCH ×2 (14:49→22:00)
[2021-08-01] MEDS: SENNA 8.6 MG TAB PO SCH (22:00)
[2021-08-02] VITALS (67 sets, daily range): BP systolic 81–119; BP diastolic 53–76
[2021-08-02] MEDS: metroNIDAZOLE 500 MG TAB PO SCH ×3 (06:00→21:19)
[2021-08-02] MEDS: LEVOTHYROXINE SODIUM 25 MCG TAB PO SCH (07:00)
[2021-08-02 07:32] LABS: Hematocrit 25.3 % (41.0-53.0); Mean Corpuscular Hemoglobin 29.2 pg (28.0-32.0); Mean Corpuscular Hgb Conc. 31.7 g/dL (32.0-36.0); Mean Corpuscular Volume 92.2 fL (80.0-100.0); Red Blood Cells 2.75 10^6/uL (4.5-5.90); Red Cell Distribution Width 17.3 % (11.8-14.3); White Blood Cell 4.2 10^3/uL (4.4-10.8)
[2021-08-02 07:40] LABS: Band Neutrophils % (manual) 0; Basophils % (manual) 0 (0.0-2.0); Blast Cells 0; Metamyelocytes % 0; Myelocytes % 0; Promyelocytes % 0; Reactive Lymphocytes 0
[2021-08-02 07:47] LABS: BUN/Creatinine Ratio 28.2; Calcium 7.8 mg/dL (8.5-10.1); Potassium 4.7 mmol/L (3.5-5.1)
[2021-08-02] MEDS: FAMOTIDINE (10MG/ML) 2ML VL IV SCH (10:00)
[2021-08-02] MEDS: Pro-Stat SF 30ml Vanilla PO SCH ×2 (10:47→18:00)
[2021-08-02] MEDS: Juven Fruit Punch Powder PACKET 28.8gm PO SCH ×2 (10:47→18:00)
[2021-08-02] MEDS: MAGNESIUM OXIDE 400 MG TAB PO SCH ×2 (10:54→21:07)
[2021-08-02] MEDS: HEPARIN SODIUM (PORCINE) 5000 UNITS/ML 1ML VIAL SC SCH ×2 (10:54→21:20)
[2021-08-02] MEDS: SODIUM CHLOR 0.9% PF (SALINE LOCK) 10ML VIAL/SYR IV SCH ×2 (11:15→21:19)
[2021-08-02 11:42] LABS: Eosinophils % (manual) 2 (0-7); Lymphocytes % (manual) 20 (10.0-50.0); Monocytes % (manual) 21 (0-12)
[2021-08-02] MEDS ORDERED: VANCOMYCIN 1GM/250ML 250 ML IV ONE (12:30)
[2021-08-02] MEDS: NOREPINEPHRINE 8 MG/250ML KIT 250 ML IV SCH (14:07)
[2021-08-02] MEDS: SENNA 8.6 MG TAB PO SCH (21:07)
[2021-08-03] VITALS (45 sets, daily range): BP systolic 82–105; BP diastolic 39–72
[2021-08-03] MEDS: NOREPINEPHRINE 8 MG/250ML KIT 250 ML IV SCH (03:30)
[2021-08-03] MEDS: LEVOTHYROXINE SODIUM 25 MCG TAB PO SCH (06:14)
[2021-08-03] MEDS: metroNIDAZOLE 500 MG TAB PO SCH ×3 (06:14→21:18)
[2021-08-03 06:38] LABS: Hematocrit 23.4 % (41.0-53.0); Hemoglobin 7.6 g/dL (13.5-17.5); Mean Corpuscular Hgb Conc. 32.7 g/dL (32.0-36.0); Mean Corpuscular Volume 91.7 fL (80.0-100.0); Red Blood Cells 2.55 10^6/uL (4.5-5.90); Red Cell Distribution Width 17.6 % (11.8-14.3); White Blood Cell 3.3 10^3/uL (4.4-10.8)
[2021-08-03 06:45] LABS: Basophils % (manual) 0 (0.0-2.0); Blast Cells 0; Metamyelocytes % 0; Myelocytes % 0; Promyelocytes % 0; Reactive Lymphocytes 0
[2021-08-03 06:59] LABS: BUN/Creatinine Ratio 30.6; Calcium 7.9 mg/dL (8.5-10.1); Magnesium 2.1 mg/dL (1.6-2.6); Potassium 4.9 mmol/L (3.5-5.1)
[2021-08-03 08:08] LABS: Band Neutrophils % (manual) 2; Eosinophils % (manual) 4 (0-7); Lymphocytes % (manual) 20 (10.0-50.0); Monocytes % (manual) 14 (0-12)
[2021-08-03] MEDS: Pro-Stat SF 30ml Vanilla PO SCH ×2 (09:03→18:00)
[2021-08-03] MEDS: Juven Fruit Punch Powder PACKET 28.8gm PO SCH ×2 (09:03→18:00)
[2021-08-03] MEDS: HEPARIN SODIUM (PORCINE) 5000 UNITS/ML 1ML VIAL SC SCH ×2 (09:33→20:53)
[2021-08-03] MEDS ORDERED: PANTOPRAZOLE 40 MG TAB PO ONE (09:45)
[2021-08-03] MEDS: MAGNESIUM OXIDE 400 MG TAB PO SCH ×2 (09:48→21:19)
[2021-08-03] MEDS: PANTOPRAZOLE 40 MG TAB PO SCH (10:00)
[2021-08-03] MEDS: SODIUM CHLOR 0.9% PF (SALINE LOCK) 10ML VIAL/SYR IV SCH ×2 (10:41→21:17)
[2021-08-03] MEDS: SENNA 8.6 MG TAB PO SCH (20:52)
[2021-08-04] VITALS (46 sets, daily range): BP systolic 75–113; BP diastolic 33–68
[2021-08-04] MEDS: VANCOMYCIN 1GM/250ML 250 ML IV SCH (01:00)
[2021-08-04] MEDS: NOREPINEPHRINE 8 MG/250ML KIT 250 ML IV SCH (03:30)
[2021-08-04 05:22] LABS: BUN/Creatinine Ratio 29.9; Calcium 7.6 mg/dL (8.5-10.1); Potassium 4.8 mmol/L (3.5-5.1)
[2021-08-04 05:25] LABS: Hematocrit 23.4 % (41.0-53.0); Hemoglobin 7.5 g/dL (13.5-17.5); Mean Corpuscular Hemoglobin 29.9 pg (28.0-32.0); Mean Corpuscular Hgb Conc. 32.2 g/dL (32.0-36.0); Red Blood Cells 2.51 10^6/uL (4.5-5.90); White Blood Cell 4.2 10^3/uL (4.4-10.8)
[2021-08-04 05:26] LABS: Basophils % (manual) 0 (0.0-2.0); Blast Cells 0; Metamyelocytes % 0; Myelocytes % 0; Promyelocytes % 0; Reactive Lymphocytes 0
[2021-08-04] MEDS: metroNIDAZOLE 500 MG TAB PO SCH ×3 (05:47→21:50)
[2021-08-04] MEDS: LEVOTHYROXINE SODIUM 25 MCG TAB PO SCH (05:48)
[2021-08-04 08:26] LABS: Band Neutrophils % (manual) 8; Eosinophils % (manual) 7 (0-7); Lymphocytes % (manual) 20 (10.0-50.0); Monocytes % (manual) 20 (0-12)
[2021-08-04] MEDS: Pro-Stat SF 30ml Vanilla PO SCH ×2 (10:00→18:27)
[2021-08-04] MEDS: Juven Fruit Punch Powder PACKET 28.8gm PO SCH ×2 (10:00→18:26)
[2021-08-04] MEDS: MAGNESIUM OXIDE 400 MG TAB PO SCH ×2 (10:11→21:49)
[2021-08-04] MEDS: PANTOPRAZOLE 40 MG TAB PO SCH (10:11)
[2021-08-04] MEDS: HEPARIN SODIUM (PORCINE) 5000 UNITS/ML 1ML VIAL SC SCH ×2 (10:11→21:57)
[2021-08-04] MEDS: SODIUM CHLOR 0.9% PF (SALINE LOCK) 10ML VIAL/SYR IV SCH ×2 (10:13→21:50)
[2021-08-04] MEDS: SENNA 8.6 MG TAB PO SCH (22:00)
[2021-08-05] VITALS (40 sets, daily range): BP systolic 80–129; BP diastolic 41–66
[2021-08-05] MEDS: NOREPINEPHRINE 8 MG/250ML KIT 250 ML IV SCH (03:30)
[2021-08-05 05:25] LABS: Hemoglobin 7.3 g/dL (13.5-17.5)
[2021-08-05 05:27] LABS: Hematocrit 22.3 % (41.0-53.0); Mean Corpuscular Hemoglobin 30.2 pg (28.0-32.0); Mean Corpuscular Hgb Conc. 32.7 g/dL (32.0-36.0); Mean Corpuscular Volume 92.4 fL (80.0-100.0); Red Blood Cells 2.41 10^6/uL (4.5-5.90); Red Cell Distribution Width 18.1 % (11.8-14.3)
[2021-08-05 05:47] LABS: Basophils % (manual) 0 (0.0-2.0); Blast Cells 0; Metamyelocytes % 0; Myelocytes % 0; Promyelocytes % 0; Reactive Lymphocytes 0
[2021-08-05 05:57] LABS: BUN/Creatinine Ratio 32.9; Calcium 7.6 mg/dL (8.5-10.1); Magnesium 1.9 mg/dL (1.6-2.6)
[2021-08-05] MEDS: metroNIDAZOLE 500 MG TAB PO SCH ×3 (06:30→22:50)
[2021-08-05] MEDS: LEVOTHYROXINE SODIUM 25 MCG TAB PO SCH (07:00)
[2021-08-05 07:12] LABS: Band Neutrophils % (manual) 1; Eosinophils % (manual) 11 (0-7); Lymphocytes % (manual) 9 (10.0-50.0); Monocytes % (manual) 23 (0-12)
[2021-08-05] MEDS: Juven Fruit Punch Powder PACKET 28.8gm PO SCH ×2 (08:00→18:00)
[2021-08-05] MEDS: Pro-Stat SF 30ml Vanilla PO SCH ×2 (08:00→18:00)
[2021-08-05] MEDS: PANTOPRAZOLE 40 MG TAB PO SCH (09:14)
[2021-08-05] MEDS: MAGNESIUM OXIDE 400 MG TAB PO SCH ×2 (09:14→22:50)
[2021-08-05] MEDS: SODIUM CHLOR 0.9% PF (SALINE LOCK) 10ML VIAL/SYR IV SCH ×2 (09:15→22:00)
[2021-08-05] MEDS: HEPARIN SODIUM (PORCINE) 5000 UNITS/ML 1ML VIAL SC SCH ×2 (10:44→22:00)
[2021-08-05] MEDS: VANCOMYCIN 1GM/250ML 250 ML IV SCH (13:44)
[2021-08-05] MEDS: SENNA 8.6 MG TAB PO SCH (22:00)
[2021-08-06] VITALS (32 sets, daily range): BP systolic 76–113; BP diastolic 33–75
[2021-08-06] MEDS: NOREPINEPHRINE 8 MG/250ML KIT 250 ML IV SCH (03:30)
[2021-08-06 05:43] LABS: BUN/Creatinine Ratio 34.3; Calcium 7.9 mg/dL (8.5-10.1); Potassium 4.9 mmol/L (3.5-5.1)
[2021-08-06 05:57] LABS: Hematocrit 22.5 % (41.0-53.0); Hemoglobin 7.1 g/dL (13.5-17.5); Mean Corpuscular Hemoglobin 29.5 pg (28.0-32.0); Mean Corpuscular Hgb Conc. 31.6 g/dL (32.0-36.0); Mean Corpuscular Volume 93.4 fL (80.0-100.0); Red Blood Cells 2.41 10^6/uL (4.5-5.90); Red Cell Distribution Width 18.3 % (11.8-14.3); White Blood Cell 3.4 10^3/uL (4.4-10.8)
[2021-08-06] MEDS: metroNIDAZOLE 500 MG TAB PO SCH ×3 (06:00→22:05)
[2021-08-06 06:01] LABS: Basophils % (manual) 0 (0.0-2.0); Blast Cells 0; Metamyelocytes % 0; Myelocytes % 0; Promyelocytes % 0; Reactive Lymphocytes 0
[2021-08-06] MEDS: LEVOTHYROXINE SODIUM 25 MCG TAB PO SCH (07:00)
[2021-08-06 08:00] LABS: Band Neutrophils % (manual) 3; Eosinophils % (manual) 7 (0-7); Lymphocytes % (manual) 19 (10.0-50.0); Monocytes % (manual) 19 (0-12)
[2021-08-06] MEDS: Pro-Stat SF 30ml Vanilla PO SCH ×2 (08:30→17:47)
[2021-08-06] MEDS: Juven Fruit Punch Powder PACKET 28.8gm PO SCH ×2 (08:30→17:47)
[2021-08-06] MEDS: MAGNESIUM OXIDE 400 MG TAB PO SCH ×2 (10:22→22:05)
[2021-08-06] MEDS: SODIUM CHLOR 0.9% PF (SALINE LOCK) 10ML VIAL/SYR IV SCH ×2 (10:22→22:05)
[2021-08-06] MEDS: PANTOPRAZOLE 40 MG TAB PO SCH (10:22)
[2021-08-06] MEDS: HEPARIN SODIUM (PORCINE) 5000 UNITS/ML 1ML VIAL SC SCH ×2 (10:23→22:18)
[2021-08-06] MEDS: SENNA 8.6 MG TAB PO SCH (22:00)
[2021-08-07] MEDS: VANCOMYCIN 1GM/250ML 250 ML IV SCH (01:05)
[2021-08-07 04:00] VITALS: BP 98/59
[2021-08-07 05:35] LABS: Hematocrit 22.2 % (41.0-53.0); Hemoglobin 7.3 g/dL (13.5-17.5); Mean Corpuscular Hemoglobin 30.2 pg (28.0-32.0); Mean Corpuscular Hgb Conc. 32.9 g/dL (32.0-36.0); Mean Corpuscular Volume 91.9 fL (80.0-100.0); Red Blood Cells 2.42 10^6/uL (4.5-5.90); Red Cell Distribution Width 18.4 % (11.8-14.3); White Blood Cell 3.2 10^3/uL (4.4-10.8)
[2021-08-07 05:52] LABS: Band Neutrophils % (manual) 0; Basophils % (manual) 0 (0.0-2.0); Blast Cells 0; Metamyelocytes % 0; Myelocytes % 0; Promyelocytes % 0; Reactive Lymphocytes 0
[2021-08-07 05:57] LABS: Potassium 4.7 mmol/L (3.5-5.1)
[2021-08-07 06:05] LABS: Albumin 1.9 g/dL (3.4-5.0); BUN/Creatinine Ratio 38.5; Calcium 7.7 mg/dL (8.5-10.1); Phosphorus 1.8 mg/dL (2.5-4.90)
[2021-08-07] MEDS: metroNIDAZOLE 500 MG TAB PO SCH ×3 (06:05→23:11)
[2021-08-07] MEDS: LEVOTHYROXINE SODIUM 25 MCG TAB PO SCH (06:06)
[2021-08-07] MEDS: Pro-Stat SF 30ml Vanilla PO SCH ×2 (07:51→18:28)
[2021-08-07] MEDS: Juven Fruit Punch Powder PACKET 28.8gm PO SCH ×2 (07:51→18:27)
[2021-08-07 09:00] VITALS: BP 81/38
[2021-08-07] MEDS: PANTOPRAZOLE 40 MG TAB PO SCH (09:00)
[2021-08-07] MEDS: MAGNESIUM OXIDE 400 MG TAB PO SCH ×2 (09:00→23:10)
[2021-08-07] MEDS: SODIUM CHLOR 0.9% PF (SALINE LOCK) 10ML VIAL/SYR IV SCH ×2 (09:00→23:10)
[2021-08-07] MEDS: HEPARIN SODIUM (PORCINE) 5000 UNITS/ML 1ML VIAL SC SCH ×2 (09:01→23:10)
[2021-08-07 12:56] LABS: Eosinophils % (manual) 7 (0-7); Lymphocytes % (manual) 20 (10.0-50.0); Monocytes % (manual) 16 (0-12)
[2021-08-07 13:00] VITALS: BP 81/39
[2021-08-07 17:00] VITALS: BP 102/52
[2021-08-07 22:00] VITALS: BP 90/55
[2021-08-07] MEDS: SENNA 8.6 MG TAB PO SCH (23:10)
[2021-08-08 05:00] VITALS: BP 82/47
[2021-08-08] MEDS: metroNIDAZOLE 500 MG TAB PO SCH ×2 (05:42→12:56)
[2021-08-08] MEDS: LEVOTHYROXINE SODIUM 25 MCG TAB PO SCH (05:42)
[2021-08-08 09:00] VITALS: BP 115/76
[2021-08-08] MEDS: Pro-Stat SF 30ml Vanilla PO SCH ×2 (09:19→18:33)
[2021-08-08] MEDS: MAGNESIUM OXIDE 400 MG TAB PO SCH (09:19)
[2021-08-08] MEDS: SODIUM CHLOR 0.9% PF (SALINE LOCK) 10ML VIAL/SYR IV SCH (09:19)
[2021-08-08] MEDS: Juven Fruit Punch Powder PACKET 28.8gm PO SCH ×2 (09:19→18:32)
[2021-08-08] MEDS: PANTOPRAZOLE 40 MG TAB PO SCH (09:20)
[2021-08-08] MEDS: HEPARIN SODIUM (PORCINE) 5000 UNITS/ML 1ML VIAL SC SCH (09:20)
[2021-08-08] MEDS: VANCOMYCIN 1GM/250ML 250 ML IV SCH (12:54)
[2021-08-08 13:00] VITALS: BP 102/54
[2021-08-08] MEDS ORDERED: AMOX500T86 PO (14:57)
[2021-08-08 15:50] VITALS: BP 102/54
[2021-08-08 17:00] VITALS: BP 96/58
== END 2021-08-08 18:32 | DRG 853 ==
LOC: EDBD 00:21 → ER 00:21 → OVERFLOW 09:20 → ICU WEST 10:41 → ICU CENTRL 07-30 11:22 → TELE-WESTW 08-06 14:20
PROVIDERS: ADMIT Hospitalist; ATTEND Internal Medicine Pulmonary Disease
PROC: 02HV33Z Insertion of Infusion Device into Superior Vena Cava, Percutaneous Approach (ICD-10-PCS; 2021-07-17)
PROC: B548ZZA Ultrasonography of Superior Vena Cava, Guidance (ICD-10-PCS; 2021-07-17)
PROC: 30233K1 Transfusion of Nonautologous Frozen Plasma into Peripheral Vein, Percutaneous Approach (ICD-10-PCS; 2021-07-19)
PROC: 30233R1 Transfusion of Nonautologous Platelets into Peripheral Vein, Percutaneous Approach (ICD-10-PCS; 2021-07-20)
PROC: 5A1945Z Respiratory Ventilation, 24-96 Consecutive Hours (ICD-10-PCS; 2021-07-21)
PROC: 0BH17EZ Insertion of Endotracheal Airway into Trachea, Via Natural or Artificial Opening (ICD-10-PCS; 2021-07-21)
PROC: 0W9940Z Drainage of Right Pleural Cavity with Drainage Device, Percutaneous Endoscopic Approach (ICD-10-PCS; principal; 2021-07-21 11:07)
PROC: 05HD33Z Insertion of Infusion Device into Right Cephalic Vein, Percutaneous Approach (ICD-10-PCS; 2021-08-08)
PROC: B54MZZA Ultrasonography of Right Upper Extremity Veins, Guidance (ICD-10-PCS; 2021-08-08)
DX: A41.9 Sepsis, unspecified organism (principal); E43 Unspecified severe protein-calorie malnutrition; G93.41 Metabolic encephalopathy; I50.23 Acute on chronic systolic (congestive) heart failure; R65.21 Severe sepsis with septic shock; J15.6 Pneumonia due to other Gram-negative bacteria; J96.01 Acute respiratory failure with hypoxia; J86.9 Pyothorax without fistula; J94.8 Other specified pleural conditions; N39.0 Urinary tract infection, site not specified; D68.9 Coagulation defect, unspecified; J98.11 Atelectasis; I13.0 Hypertensive heart and chronic kidney disease with heart failure and stage 1 through stage 4 chronic kidney disease, or unspecified chronic kidney disease; D64.9 Anemia, unspecified; D69.6 Thrombocytopenia, unspecified; E16.2 Hypoglycemia, unspecified; E66.9 Obesity, unspecified; E83.42 Hypomagnesemia; E86.0 Dehydration; E87.6 Hypokalemia; I48.0 Paroxysmal atrial fibrillation; I87.2 Venous insufficiency (chronic) (peripheral); I89.0 Lymphedema, not elsewhere classified; N13.9 Obstructive and reflux uropathy, unspecified; N18.31 Chronic kidney disease, stage 3a; N47.1 Phimosis; R62.7 Adult failure to thrive; B96.89 Other specified bacterial agents as the cause of diseases classified elsewhere; Z20.822 Contact with and (suspected) exposure to COVID-19; I27.20 Pulmonary hypertension, unspecified; Z59.00 Homelessness unspecified; Z68.29 Body mass index [BMI] 29.0-29.9, adult
CPT/HCPCS: 32556; 36415; 36569; 36600; 51702; 70450; 71045; 71250; 74176; 76705; 80048; 80053; 80061; 80069; 80074; 80202; 80307; 81001; 82270; 82550; 82565; 82728; 82805; 82962; 83036; 83605; 83615; 83690; 83735; 83880; 83986; 84100; 84132; 84154; 84439; 84443; 84484; 84550; 85007; 85025; 85027; 85379; 85610; 85652; 85730; 86141; 86850; 86900; 86901; 87040; 87076; 87077; 87081; 87186; 89051; 92610; 93005; 93306; 93886; 93925; 93970; 94003; 94640; 96361; 96365; 96367; 96375; 97110; 97116; 97163; 97530; 99291; A4565; G0378; J0690; J2001; J2250; J2405; J2543; J2704; J3430; J3480; J3490; J7042; J7060; P9047